=== PATIENT | male | born 1960 | race Caucasian/White ===

== ENCOUNTER 2020-08-18 18:42 | Emergency (ER) | payer OTHER ==
[~2020-08-18] VITALS: Ht 172.7 cm; Wt 71.2 kg
[2020-08-20 07:09] LABS: HCV ANTIBODY <0.1 (0.0-0.9); HIV SCREEN 4TH GENERATION WRFX Non Reactive (Non Reactive)
== END 2020-08-18 19:02 | disposition home or self-care (01) ==
LOC: ER 18:42
PROVIDERS: Emergency Medicine
DX: S61.431A Puncture wound without foreign body of right hand, initial encounter (principal); Z77.21 Contact with and (suspected) exposure to potentially hazardous body fluids; W46.1XXA Contact with contaminated hypodermic needle, initial encounter
CPT/HCPCS: 84460; 86317; 86703; 86803; 87340; 87389; 99282